=== PATIENT | female | born 1945 | race Hispanic/Latino ===

== ENCOUNTER 2016-06-03 13:49 | Emergency (ER) | payer SELFPAY ==
[2016-06-03 14:02] VITALS: BP 184/94; PULSE 74; RESP 20; TEMP 97.5; O2SAT 99
--- NOTE | 2016-06-03 15:20 | ED PDOC ---
HPI: Skin/Bite Injury Time Seen by Provider: 06/03/16 14:00 Chief Complaint (Nursing): Abnormal Skin Integrity History Per: Patient History/Exam Limitations: no limitations Additional Complaint(s): 71-year-old female, PMHx includes Depression, presents to the emergency department with complaints of a diffuse general rash to body for the past two months. patient states she has not had any time to address the symptoms . Rash is itchy and red, w/ peeling. Denies any shortness of breath, nausea/vomiting, drug/alcohol use or allergies. No other complaints at this time. Past Medical History Reviewed: Historical Data, Nursing Documentation, Vital Signs Vital Signs: Last Vital Signs Temp 97.5 F L 06/03/16 13:58 Pulse 74 06/03/16 13:58 Resp 20 06/03/16 13:58 BP 184/94 H 06/03/16 13:58 Pulse Ox 99 06/03/16 17:21 - Medical History PMH: No Chronic Diseases - Surgical History Surgical History: No Surg Hx - Family History Family History: States: Unknown Family Hx - Social History Current smoker - smoking cessation education provided: No Alcohol: None Drugs: Denies - Home Medications Home Medications: Ambulatory Orders Medication Instructions Recorded Mineral Oil/Hydrophil Petrolat 1 oin TP BID #1 oin 06/03/16 [Aquaphor] - Allergies Allergies/Adverse Reactions: Allergies Allergy/AdvReac Type Severity Reaction Status Date / Time No Known Allergies Allergy Verified 06/03/16 14:02 Review of Systems ROS Statement: Except As Marked, All Systems Reviewed And Found Negative Constitutional: Negative for: Fever Respiratory: Negative for: Shortness of Breath Gastrointestinal: Negative for: Nausea, Vomiting Musculoskeletal: Negative for: Back Pain Skin: Positive for: Rash Neurological: Negative for: Headache, Dizziness Physical Exam - Reviewed Nursing Documentation Reviewed: Yes Vital Signs Reviewed: Yes - Physical Exam Appears: Positive for: Non-toxic, No Acute Distress Head Exam: Positive for: ATRAUMATIC, NORMOCEPHALIC Skin: Positive for: Dry, Rash (diffuse puritic, erythematous rash throughout. peeling skin.). Negative for: Warm Eye Exam: Positive for: Normal appearance ENT: Positive for: Normal ENT Inspection Neck: Positive for: Painless ROM Cardiovascular/Chest: Positive for: Regular Rate, Rhythm Respiratory: Positive for: Normal Breath Sounds. Negative for: Accessory Muscle Use, Respiratory Distress Gastrointestinal/Abdominal: Positive for: Normal Exam Extremity: Positive for: Normal ROM Neurologic/Psych: Positive for: Alert, Oriented - ECG O2 Sat by Pulse Oximetry: 99 Medical Decision Making Medical Decision Making: Impression: Rash Plan: * Benadryl, Pepcid, Prednisone * Reassess and Disposition Time: 1715 Patient on re-evaluation reports feeling better with improvement of rash. given RX aquaphor Discussed with patient the importance of following up with dermatology. Patient verbalized understanding. Scribe Attestation: Documented by Shara Jose acting as a scribe for Austin Lopez MD. Provider Attestation: All medical record entries made by the Scribe were at my direction and personally dictated by me. I have reviewed the chart and agree that the record accurately reflects my personal performance of the history, physical exam, medical decision making, and the department course for this patient. I have also personally directed, reviewed, and agree with the discharge instructions and disposition. Disposition - Clinical Impression Clinical Impression: Rash, Dry skin - Patient ED Disposition Is Patient to be Admitted: No Counseled Patient/Family Regarding: Studies Performed, Diagnosis, Need For Followup - Disposition Referrals: [facility] [Outside] Timur Forrest MD [Staff Provider] - Disposition: Routine/Home Disposition Time: 16:00 Condition: GOOD Additional Instructions: follow up with your DERMATOLOGY in 1-2 days. use aquaphor oint as instructed for dry skin. return to the ED with any worsening or concerning symptoms. Prescriptions: Mineral Oil/Hydrophil Petrolat [Aquaphor] 1 oin TP BID #1 oin Instructions: Acute Rash (ED)
== END 2016-06-03 18:00 | disposition home or self-care (01) ==
LOC: H.ER 13:49
DX: R21 Rash and other nonspecific skin eruption (principal)